=== PATIENT | female | born 1995 | race Caucasian/White ===

== ENCOUNTER 2017-07-16 08:00 | Inpatient (IN) | payer OTHER, SELFPAY ==
[2017-07-16 07:19] VITALS: BMI 52.8
[2017-07-16 07:59] LABS: ROM Internal Control Test YES-OK TO RESULT pt. (Internal QC)
[2017-07-16 08:01] LABS: ROM Patient Test POSITIVE (Negative)
[2017-07-16] MEDS: Oxytocin 30 units/NS 500 ml 30 UNITS/500 ML IV.SOLN IV (09:24)
[2017-07-16] MEDS: Lactated Ringers 1,000 ML 50 ML IV ×5 (09:24→21:57)
[2017-07-16 09:25] LABS: Hemoglobin 13.1 g/dl (12.0-15.0); Mean Corp Hgb Conc 33.6 g/gl (32-36); Mean Corpuscular Hgb 28.2 pg (27.0-32.0); Mean Corpuscular Volume 83.9 fL (81-99); Mean Platelet Vol. 12.3 fl (6.2-12.0); Platelet Count 232 K/mm3 (150-450); RBC Distribution Width CV 17.8 % (11.6-14.6); Red Blood Count 4.65 M/mm3 (4.2-5.4); White Blood Count 12.1 K/mm3 (4.4-11.0)
[2017-07-16 09:27] LABS: Scan Indicated on CBC? Y/N NO
--- NOTE | 2017-07-16 14:51 | PCM.PN.BLA ---
Progress Note LABOR PROGRESS NOTE Up at bedside standing and rocking with UCs. Has tried hands and knees, peanut ball, position changes AVSS Pitocin at 5 mIU/min (had been at 8 and dec d/t tachysystole) IFM: 120-s - 130 with avg variability Accels noted. intermittent variables, Occasional late, but category I tracing overall. UCs q 1 - 4+ mins with coupling, tripling and spacing dysfunctional appearing pattern. CX: deferred d/t SROM IUPC and scalp lead both placed at 2 cm No significant change from admission exam A/P; 36 6/7 wk EGA SROM. Clear. L ventricle with ventriculomegaly . NO OPERATIVE vaginal delivery recommended. Possible VSD IUGR. No significant progress noted. Continue pitocin and position changes. Watch progress, descent, tolerance of labor.
[2017-07-16] MEDS: Nalbuphine 10 MG/ML Ampul IV (15:39)
[2017-07-16] MEDS: Ondansetron 4 MG/2 ML Vial IV (16:49)
--- NOTE | 2017-07-16 17:11 | PCM.PN.OB ---
Subjective: Feeling contractions Objective: Afeb VSS. IUPC with adequate contractions. FHR tracing Cat 1. - Physical Exam General: Alert, Oriented x3, Cooperative, No apparent distress Lungs: Clear to auscultation, Normal air movement Cardiovascular: Regular rate, Regular Rhythm Abdomen: Gravid, Appropriate for Gestational Age Extremities: No edema Skin: No rashes Neurological: Neuro grossly intact Psych/Mental Status: Normal Affect Comment: ce 4 cm Weight: 289 lb 0.416 oz Body Mass Index (BMI) 52.8 Laboratory Tests Past 24 Hrs 07/16/17 07/16/17 07/16/17 07:40 09:10 09:10 WBC 12.1 H RBC 4.65 Hgb 13.1 Hct 39.0 MCV 83.9 MCH 28.2 MCHC 33.6 RDW 17.8 H RDW Differential 54.0 H Plt Count 232 MPV 12.3 H Vag Amniotic Fld Detect POSITIVE H Blood Type A POSITIVE Antibody Screen NEGATIVE Assessment/Plan Has progressed in labor. Continue pitocin. SROM now for 10 hours.
--- NOTE | 2017-07-17 02:23 | PCM.PN.OB ---
Subjective: Feels urge to push. Objective: Afeb VSS. FHR tracing overall Cat 1. - Physical Exam General: Alert, Oriented x3, Cooperative, No apparent distress Lungs: Clear to auscultation, Normal air movement Cardiovascular: Regular rate, Regular Rhythm Abdomen: Non Tender, Gravid, Appropriate for Gestational Age Extremities: No edema Skin: No rashes Comment: CE FD +2 station. Weight: 289 lb 0.416 oz Body Mass Index (BMI) 52.8 Intake and Output for Last 24 Hours 07/15/17 07/16/17 07/17/17 23:59 23:59 23:59 Intake Total 5250 / 5250 Output Total 750 / 750 Balance 4500 / 4500 Laboratory Tests Past 24 Hrs 07/16/17 07/16/17 07/16/17 07:40 09:10 09:10 WBC 12.1 H RBC 4.65 Hgb 13.1 Hct 39.0 MCV 83.9 MCH 28.2 MCHC 33.6 RDW 17.8 H RDW Differential 54.0 H Plt Count 232 MPV 12.3 H Vag Amniotic Fld Detect POSITIVE H Blood Type A POSITIVE Antibody Screen NEGATIVE Assessment/Plan Now in second stage of labor. Will start pushing efforts. Will avoid operative delivery due to suspected VSD.
--- NOTE | 2017-07-17 02:27 | PLAC_PTH ---
PATIENT: LUDA CRANDALL LOC: [facility] U#:[id number] AGE/SX: 21/F ROOM: WP002 RE07/16/[address]: Dr. Aristidse Elliott MD : 1995 BED: 1 DIS: 07/19/2017 SPEC #: [id number] RECD: 07/17/17 11:33 STATUS: MERY JORGE #: [id number] BRADEN: 07/17/17 02:[address]: Aristides Elliott DEPT: SURGICAL PATHOLOGY RECD BY: Reid Guzmán ENTERED: 07/17/17 11:33 SP TYPE: PLACENTA OTHR DR: No Primary Care Phys Tissues: Placenta, NOS Procedures: Surgery Specimen Level V HEADER OPERATION: Vaginal delivery PRE-OP DIAGNOSIS: SGA baby with suspected VSD TISSUE SUBMITTED: Placenta MICROSCOPIC DIAGNOSIS Zapata placenta (344 gm): Umbilical cord ? trivascular with acute funisitis. Placental membranes ? acute chorioamnionitis and acute deciduitis. Placental disc ? organizing intraparenchymal hemorrhage, Eduar-Rodney change, intravillous congestion and acute vasculitis of superficial placental vessels. AM:wolf 07/21/17 MICROSCOPIC DESCRIPTION Slides are reviewed. GROSS DESCRIPTION SPECIMEN: PLACENTA / CLINICAL INFORMATION: A. Weight: 1.884 kg B. Gestational Age: 37 weeks C. Sex: Male PLACENTAL WEIGHT (POST FIXATION): 344 gm PLACENTAL DIMENSIONS: 15 x 14 x 3 cm PLACENTAL SHAPE: Usual ovoid PLACENTAL WEIGHT FOR GESTATIONAL AGE: Within 10-99th percentile MEMBRANES - Present A. Insertion: Marginal B. Site of rupture from edge: 4.5 cm from edge of placental disc C. Color of membrane: Gilbert-vaz D. Abnormalities: None UMBILICAL CORD - Present A. Color: Gilbert-vaz B. Insertion: Eccentric C. Length: 49 cm D. Diameter: 1.2 cm E. Number of vessels: Three F. Abnormalities: None PLACENTAL DISC - Present A. Color of surface: Gilbert-vaz B. surface abnormalities: None C. Maternal cotyledons: Intact with minimal tears D. Attached retro placental clot: No clot E. Cut surface: Dark red and spongy F. Lesions: Section sections reveal a white-gilbert lesion measuring 1.5 x 0.8 cm G. Separate clot: Absent SECTIONS SUBMITTED: 1. Membrane roll and umbilical cord ( end notched) 2. Placental disc, and maternal surfaces, lesion 3. Placental disc, and maternal surfaces 4. Placental disc, and maternal surfaces AM:wolf 07/18/17 TC:2 CPT: 70069
[2017-07-17] MEDS: Oxytocin 30 units/NS 500 ml 30 UNITS/500 ML IV.SOLN 334 UNITS IV (02:44)
--- NOTE | 2017-07-17 03:09 | OP.PCM_ITS ---
Vaginal Delivery Maternal Presentation: Spontaneous Rupture of Membranes 36w6d with SROM. complicated by IUGR and suspected VSD with ventriculomegaly. Induction had been planned for 37 weeks. due to elevated dopplers and IUGR. Method of Induction: Pitocin Medical Reason for Induction: Compromise: list: - IUGR Amniotic Membrane Rupture Type: Spontaneous at home Rupture of Membrane time: 0600 Amniotic Fluid Description: Clear Final ESHA: 08/07/17 Final ESHA Source: [place] <20 weeks Gestational age: 37 Weeks and 0 Days Date of Procedure: 07/17/17 Pre-Operative Diagnosis: Labor Post-Operative Diagnosis: Same Surgery/ Procedure Performed: Spontaneous Vaginal Delivery Anesthesiologist: Hilton Parkinson Type of Anesthesia: Epidural Description of Procedure: Progressed to FD then pushed for less than 30 minutes to deliver a live male . There was a tight nuchal cord but was able to deliver without cutting cord. Cord was clamped and cut and baby taken to warmer for evaluation by nursing staff. Dr. Maldonado called shortly after delivery. The placenta was delivered spontaneously with a centrally located 3VC. The uterus contracted well after delivery. Inspection revealed an intact cervix and upper vagina. A very small first degree posterior vaginal first degree tear was re[paired with 2 -0 vicryl in a single figure of eight stitch. Presentation: Vertex Placental Delivery Description: Spontaneous Placenta Disposition: [facility] Percentage of Placenta Abruption: 0 Cord Vessel Description: 3 Vessels Nuchal Cord Compression: With compression Cord Entanglement: Around neck x 1, tight Drain: Bryan to straight drain Estimated Blood Loss: 300cc A gender: Male Episiotomy Description: None Laceration: Midline, 1st degree Medications given after delivery: IV Pitocin Complications: None
--- NOTE | 2017-07-17 03:13 | DCINST_ITS ---
Discharge Diet: No Restrictions Discharge Activity: Return to Normal Activity, May Drive, May Shower Return to work on:: 09/15/17 May shower in (days): 0 May resume sexual activity in: 4-6 weeks Call your doctor if your incision/area has: Sudden Increased Bleeding, Increased Pain/ Swelling, Foul Smelling Discharge Call your doctor if you observe: Fever of 101 or Higher, Inability to urinate, Inability to have a bowel movement, Using more than one pad per hour, Shortness of breath, Chest pain, Calf discomfort, Uncontrolled pain Cleanse incision/area with: Soap & Water Additional Instructions: If you experience any of the following, contact your healthcare provider. * Bleeding that soaks a pad every hour for 2 hours * Fever 100.4 or higher * Unrelieved incision or abdominal pain * Swelling, redness, discharge or bleeding from your incision or episiotomy site * Your incision begins to separate * Problems urinating (including inability to urinate or burning while urinating) . * Visual changes * Severe headache * Flu-like symptoms * Pain or redness in one of both of your breasts * Pain, warmth, tenderness or swelling in your legs, especially the calf area * Frequent nausea and vomiting * Symptoms of depression or anxiety If you experience any of the following, call 911 or go to the nearest Emergency Room. * Chest pain * Problems breathing * Seizure activity * Partial or complete paralysis of a body part, slurred speech, weakness or drooping of the face, or a sudden inability to walk or hold your balance Allergies/Adverse Reactions: Allergies No Known Allergies Allergy (Verified 08/09/15 09:37) Medications to take at Discharge Ferrous Sulfate 325 mg PO BIDCM 07/16/17 Levothyroxine [Synthroid] 88 mcg PO DAILY 07/16/17 Vits [Prenatabs FA ] 1 tablet PO DAILY 07/16/17 Ibuprofen [Motrin] 800 mg PO TID PRN PRN #30 tab 07/17/17 The following prescriptions were given: Ibuprofen [Motrin] 800 mg PO TID PRN PRN #30 tab PRN Reason: pain or cramping Orders to be completed after discharge: Electric breast pump Location: None Selected Please Follow Up With: Kenzie Edwards MD When: 6 weeks Primary Care Physician: Care Physician,No Primary [Primary Care Provider] - Proposed Discharge Date: 07/19/17
[2017-07-17] MEDS: Oxytocin 30 units/NS 500 ml 30 UNITS/500 ML IV.SOLN 167 UNITS IV (03:15)
[2017-07-17 03:26] LABS: Pathology Specimen OB SEE PATHOLOGY REPORT
[2017-07-17] MEDS: Ibuprofen 600 MG Tablet PO (03:58)
[2017-07-17] MEDS: Levothyroxine 88 MCG Tablet PO (05:05)
--- NOTE | 2017-07-17 07:53 | PCM.PN.OB ---
Subjective: Day of Delivery with epidural Doing well. reports easy delivery after longer labor. Epidural effective. Feet still a little tingly and working on moving in bed until full sensation returns. Breast feeding. Objective: Sitting up in bed. Baby at bedside in crib - Physical Exam General: Alert, Oriented x3, Cooperative, No apparent distress HEENT: Atraumatic Neck: Supple Abdomen: Soft - Fundus firm NT inferior to umbilicus. Extremities: No clubbing Neurological: Cranial nerves II-XII grossly intact Psych/Mental Status: Normal Affect Weight: 131.1 kg Body Mass Index (BMI) 52.8 Intake and Output for Last 24 Hours 07/15/17 07/16/17 07/17/17 23:59 23:59 23:59 Intake Total 5250 / 5250 1250 / 1250 Output Total 750 / 750 700 / 700 Balance 4500 / 4500 550 / 550 Laboratory Tests Past 24 Hrs 07/16/17 07/16/17 07/16/17 07:40 09:10 09:10 WBC 12.1 H RBC 4.65 Hgb 13.1 Hct 39.0 MCV 83.9 MCH 28.2 MCHC 33.6 RDW 17.8 H RDW Differential 54.0 H Plt Count 232 MPV 12.3 H Vag Amniotic Fld Detect POSITIVE H Blood Type A POSITIVE Antibody Screen NEGATIVE Assessment/Plan PPD 0 Day of delivery. 36 6/7 wk for SROM Baby with L ventriculmegaly, possible on MFM sono. IUGR 4# 8 oz Continue care.
--- NOTE | 2017-07-17 07:57 | PN.OBGYN_ITS ---
Subjective: Day of Delivery with epidural Doing well. reports easy delivery after longer labor. Epidural effective. Feet still a little tingly and working on moving in bed until full sensation returns. Breast feeding. Objective: Sitting up in bed. Baby at bedside in crib - Physical Exam General: Alert, Oriented x3, Cooperative, No apparent distress HEENT: Atraumatic Neck: Supple Abdomen: Soft - Fundus firm NT inferior to umbilicus. Extremities: No clubbing Neurological: Cranial nerves II-XII grossly intact Psych/Mental Status: Normal Affect Weight: 131.1 kg Body Mass Index (BMI) 52.8 Intake and Output for Last 24 Hours 07/15/17 07/16/17 07/17/17 23:59 23:59 23:59 Intake Total 5250 / 5250 1250 / 1250 Output Total 750 / 750 700 / 700 Balance 4500 / 4500 550 / 550 Laboratory Tests Past 24 Hrs 07/16/17 07/16/17 07/16/17 07:40 09:10 09:10 WBC 12.1 H RBC 4.65 Hgb 13.1 Hct 39.0 MCV 83.9 MCH 28.2 MCHC 33.6 RDW 17.8 H RDW Differential 54.0 H Plt Count 232 MPV 12.3 H Vag Amniotic Fld Detect POSITIVE H Blood Type A POSITIVE Antibody Screen NEGATIVE Assessment/Plan PPD 0 Day of delivery. 36 6/7 wk for SROM Baby with L ventriculmegaly , possible on MFM sono. IUGR 4# 8 oz Continue care.
[2017-07-17 08:33] VITALS: BP 149/63; PULSE 70; RESP 16; TEMP 36.9; O2SAT 95
[2017-07-17] MEDS: Ferrous Sulfate 325 MG Tablet PO ×2 (10:04→18:15)
[2017-07-17 13:13] VITALS: BP 136/77; PULSE 88; RESP 16; TEMP 36.6; O2SAT 96
--- NOTE | 2017-07-17 15:32 | NURSING ---
Unable to catch urine for measurement
--- NOTE | 2017-07-17 15:38 | NURSING ---
vitals and assessment reviewed from student Nurse and i agree with ther findings after seeing and assessing the patient myself
[2017-07-17 16:11] VITALS: BP 154/85; PULSE 92; RESP 18; TEMP 37; O2SAT 96
[2017-07-17] MEDS: Prenatal Vits Tablet 1 TABLET PO (16:43)
[2017-07-17 21:15] VITALS: BP 135/70; PULSE 90; RESP 18; TEMP 36.1
[2017-07-18 02:55] VITALS: BP 151/84; PULSE 80; RESP 18; TEMP 36.8
[2017-07-18] MEDS: Levothyroxine 88 MCG Tablet PO (06:13)
[2017-07-18 08:25] LABS: Hematocrit 34.4 % (37-47); Hemoglobin 11.3 g/dl (12.0-15.0); Mean Corp Hgb Conc 32.8 g/gl (32-36); Mean Corpuscular Hgb 27.9 pg (27.0-32.0); Mean Corpuscular Volume 84.9 fL (81-99); Mean Platelet Vol. 11.3 fl (6.2-12.0); Platelet Count 131 K/mm3 (150-450); RBC Distribution Width CV 18.2 % (11.6-14.6); RBC Distribution Width SD 56.9 fl (35.1-43.9); Red Blood Count 4.05 M/mm3 (4.2-5.4)
[2017-07-18 08:26] LABS: Scan Indicated on CBC? Y/N NO
[2017-07-18 09:00] VITALS: BP 126/69; PULSE 80; RESP 18; TEMP 37.3
--- NOTE | 2017-07-18 10:13 | PCM.PN.OB ---
Subjective: Patient without complaints. Breast feeding going well. - Physical Exam Vital Signs AF, VSS Temp Pulse Resp BP Pulse Ox 98.3 F 80 18 151/84 H 96 07/18/17 02:55 07/18/17 02:55 07/18/17 02:55 07/18/17 02:55 07/17/17 16:11 Oxygen Delivery Method Room Air Weight: 289 lb 0.416 oz Body Mass Index (BMI) 52.8 Intake and Output for Last 24 Hours 07/16/17 07/17/17 07/18/17 23:59 23:59 23:59 Intake Total 5250 / 5250 1250 / 1250 Output Total 750 / 750 1600 / 1600 Balance 4500 / 4500 -350 / -350 Laboratory Tests Past 24 Hrs 07/18/17 08:05 WBC 16.0 H RBC 4.05 L Hgb 11.3 L Hct 34.4 L MCV 84.9 MCH 27.9 MCHC 32.8 RDW 18.2 H RDW Differential 56.9 H Plt Count 131 L MPV 11.3 Assessment/Plan Doing well. Continuing present care.
[2017-07-18] MEDS: Prenatal Vits Tablet 1 TABLET PO (13:08)
[2017-07-18] MEDS: Ferrous Sulfate 325 MG Tablet PO ×2 (13:08→17:50)
[2017-07-18 14:00] VITALS: BP 146/85; PULSE 72; RESP 18; TEMP 37.2
[2017-07-18 20:20] VITALS: BP 153/85; PULSE 80; RESP 18; TEMP 37.1
[2017-07-19 00:25] VITALS: BP 143/77
[2017-07-19 01:55] VITALS: BP 135/66; PULSE 85; RESP 18; TEMP 36.8
[2017-07-19] MEDS: Levothyroxine 88 MCG Tablet PO (06:31)
[2017-07-19 10:00] VITALS: BP 138/78; PULSE 77; RESP 18; TEMP 36.8; O2SAT 99
[2017-07-19] MEDS: Ferrous Sulfate 325 MG Tablet PO ×2 (10:14→17:37)
[2017-07-19] MEDS: Prenatal Vits Tablet 1 TABLET PO (10:14)
--- NOTE | 2017-07-19 12:17 | PCM.PN.OB ---
Subjective: Patient without complaints. Breast-feeding going well. Ready to go home. - Physical Exam Vital Signs AF, VSS Temp Pulse Resp BP Pulse Ox 98.2 F 77 18 138/78 H 99 07/19/17 10:00 07/19/17 10:00 07/19/17 10:00 07/19/17 10:00 07/19/17 10:00 Oxygen Delivery Method Room Air Weight: 289 lb 0.416 oz Body Mass Index (BMI) 52.8 Intake and Output for Last 24 Hours 07/17/17 07/18/17 07/19/17 23:59 23:59 23:59 Intake Total 1250 / 1250 Output Total 1600 / 1600 Balance -350 / -350 Assessment/Plan Doing well. Released to home with routine instructions.
--- NOTE | 2017-07-19 12:20 | PCM.DC.BLA ---
Discharge Summary Date of Admission: 07/16/17 Date of Discharge: 07/19/17 Summary: Admission diagnosis: Intrauterine , ventriculomegaly Discharge diagnosis: Intrauterine , ventriculomegaly Procedure: Tenuous vaginal delivery HPI: Uneventful care except as noted above PE: Unremarkable. Hospital Course: The patient is a 21 year old who presented to [facility] at 36+ week weeks gestation with PPROM. She subsequently had a tennis vaginal delivery. the patient did well and it was felt that she was ready for discharge on day #2. Homegoing Instruction: She was instructed not to drive for several days and to call the office for an appointment in 6 weeks. Discharge Medications: She was instructed to continue vitamins and iron.
[2017-07-19 14:15] VITALS: BP 147/99; PULSE 86; RESP 18; TEMP 37
== END 2017-07-19 19:00 | disposition home or self-care (01) | DRG 775 ==
LOC: WPOUT 08:04
PROVIDERS: Obstetrics & Gynecology; Admitting Provider Obstetrics & Gynecology; Visit Provider Obstetrics & Gynecology
DX: O36.5930 Maternal care for other known or suspected poor fetal growth, third trimester, not applicable or unspecified (principal); E03.9 Hypothyroidism, unspecified; Z3A.37 37 weeks gestation of pregnancy; O69.1XX0 Labor and delivery complicated by cord around neck, with compression, not applicable or unspecified; Z37.0 Single live birth; O70.0 First degree perineal laceration during delivery; O99.284 Endocrine, nutritional and metabolic diseases complicating childbirth
CPT/HCPCS: 36415; 59025; 59050; 84112; 85027; 86850; 86900; 88307; 99218; J7120; G0378; J2405

== ENCOUNTER 2017-07-23 12:55 | Outpatient (CLI) | payer OTHER, SELFPAY ==
--- NOTE | 2017-07-23 14:20 | NURSING ---
Mother's breasts soft but filling , baby assertive suck with nipple shield for longer period than when just on breast and occasional swallow heard but not constant.
--- NOTE | 2017-07-23 14:23 | NURSING ---
Did not get milk transfer at this feeding
== END 2017-07-23 14:00 | disposition home or self-care (01) ==
LOC: WPOUT 12:57 → WP 12:58
PROVIDERS: Visit Provider Pediatrics
DX: R63.3 Feeding difficulties (principal)
CPT/HCPCS: 96152

== ENCOUNTER → 2018-09-16 13:33 | Outpatient (CLI) | payer OTHER, SELFPAY ==
[2018-09-21 10:12] LABS: HPV Reflexed? NOT INDICATED
== END ==
PROVIDERS: Visit Provider Obstetrics & Gynecology
DX: Z12.4 Encounter for screening for malignant neoplasm of cervix (principal)
CPT/HCPCS: 88175; G0145

== ENCOUNTER 2021-06-12 17:46 | Outpatient (CLI) | payer OTHER, SELFPAY ==
[2021-06-12] VITALS (9 sets, daily range): BP systolic 131–164; BP diastolic 60–85; PULSE 78–108; O2SAT 96; BMI 48.0
--- NOTE | 2021-06-12 18:19 | OB.TRI.NOTE ---
HPI - General HPI Narrative LUDA CRANDALL, is a 25 F who presents with elevated BP at home. Maternal Data Information Final ESHA: 09/18/21 [facility] Medical History (Updated 06/12/21 @ 18:[address] Palmer Byrd MD) Elevated blood pressure affecting in third trimester, antepartum Home Medications Prenatabs FA 1 tab PO DAILY 07/16/17 [History Last Taken 06/11/21 21:00] levothyroxine 137 mcg PO DAILY 07/16/17 [History Last Taken 06/12/21 06:00] aspirin 162 mg PO DAILY 06/12/21 [History Last Taken 06/11/21 21:00] bupropion HCl 150 mg PO DAILY 06/12/21 [History Last Taken 06/11/21 21:00] sertraline [Zoloft] 100 mg PO DAILY 06/12/21 [History Last Taken 06/11/21 21:00] Allergy/AdvReac Type Severity Reaction Status Date / Time No Known Allergies Allergy Verified 06/12/21 17:55 Social History Smoking Status: Never smoker History Elective abortions Hx Para 0 Spontaneous abortions Hx # Term Pregnancies Ectopic pregnancies Hx # Pregnancies Multiple births # of living children NST FHR Rate Baby A Baseline: 135 Variability:: Moderate Accelerations:: 15 x 15 Decelerations:: None NST Reactive:: Yes Uterine Activity:: quiet Assessment & Plan (1) Elevated blood pressure affecting in third trimester, antepartum: COMMENT: 26 weeks PLAN: Reactive NST PreE labs ordered BP monitoring
[2021-06-12 19:24] LABS: Protein, Urine (Random) 16.2 mg/dL (<11.9); Protein:Creat Ratio 116 mg/g CRE (0-200)
[2021-06-12 20:23] LABS: Hematocrit 33.3 % (37-47); Hemoglobin 10.9 g/dL (12.0-15.0); Mean Corp Hgb Conc 32.7 g/dL (32-36); Mean Corpuscular Hgb 28.5 pg (27.0-32.0); Mean Corpuscular Volume 86.9 fL (81-99); Mean Platelet Vol. 11.6 fl (6.2-12.0); Platelet Count 296 K/mm3 (150-450); RBC Distribution Width SD 40.9 fl (35.1-43.9); Red Blood Count 3.83 M/mm3 (4.2-5.4); White Blood Count 18.6 K/mm3 (4.4-11.0)
[2021-06-12 20:54] LABS: AST(SGOT) 19 U/L (15-37); Alanine Aminotransfer ALT/SGPT 26 U/L (13-56); Creatinine, Serum 0.46 mg/dL (0.55-1.02); EST Glomerular Filtration Rate 175 mL/min (>60); Est Glom Filt Rate - Afr Amer 212 mL/min (>60); Uric Acid 3.8 mg/dL (2.6-6.0)
== END 2021-06-12 23:59 | disposition home or self-care (01) ==
LOC: WPOUT 17:47 → WP 17:48
PROVIDERS: Visit Provider Obstetrics & Gynecology
DX: O26.892 Other specified pregnancy related conditions, second trimester (principal); R03.0 Elevated blood-pressure reading, without diagnosis of hypertension; Z3A.26 26 weeks gestation of pregnancy; Z79.82 Long term (current) use of aspirin
CPT/HCPCS: 36415; 59025; 59050; 82565; 82570; 84156; 84450; 84460; 84550; 85027; 99218; G0378

== ENCOUNTER 2021-07-02 17:10 | Outpatient (CLI) | payer OTHER, SELFPAY ==
[2021-07-02 17:22] VITALS: TEMP 36.4; O2SAT 98
[2021-07-02 17:23] VITALS: BP 129/83; PULSE 125; O2SAT 98
[2021-07-02 19:21] VITALS: PULSE 80; O2SAT 99
[2021-07-02 19:23] VITALS: BP 121/73; PULSE 87; TEMP 36.3
[2021-07-02 19:25] VITALS: BMI 48.3
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
== END 2021-07-02 23:59 | disposition home or self-care (01) ==
LOC: WPOUT 17:12 → WP 17:13
PROVIDERS: Referring Provider Advanced Practice Midwife; Visit Provider Advanced Practice Midwife
DX: Z04.1 Encounter for examination and observation following transport accident (principal)
CPT/HCPCS: 59025; 59050; 99218; G0378

== ENCOUNTER 2021-09-04 07:05 | Inpatient (IN) | payer OTHER, SELFPAY ==
[2021-09-04] VITALS (91 sets, daily range): BP systolic 105–167; BP diastolic 53–95; PULSE 41–123; TEMP 36.4–37.4; O2SAT 87–100; BMI 50.6
[2021-09-04] MEDS: Lactated Ringers 1,000 ML 50 ML IV (08:26)
[2021-09-04] MEDS: Oxytocin 30 units/NS 500 ml 30 UNITS/500 ML IV.SOLN IV (08:26)
[2021-09-04 08:51] LABS: Absolute Lymphocyte Count 2.08 X10^3/uL (0.83-4.51); Absolute Neutrophil Count 11.7 X10^3/uL (2.0-7.7); Basophil# 0.06 X10^3/uL; Basophil% 0.4 % (0-1); Eosinophil# 0.74 X10^3/uL; Eosinophils% 4.8 % (0-5); Hematocrit 28.5 % (37-47); Hemoglobin 8.8 g/dL (12.0-15.0); Lymphocyte # 2.08 X10^3/ul (0.83-4.51); Lymphocyte % 13.5 % (19-41); Mean Corp Hgb Conc 30.9 g/dL (32-36); Mean Corpuscular Hgb 23.5 pg (27.0-32.0); Mean Platelet Vol. 11.4 fl (6.2-12.0); Monocyte# 0.81 X10^3/uL; Monocyte% 5.2 % (0-10); NRBC Flagged by Analyzer 0 % (0-5); Neutrophil # 11.66 X10^3/uL (2.7-7.7); Neutrophil % 75.5 % (47-70); Platelet Count 289 K/mm3 (150-450); RBC Distribution Width CV 14.9 % (11.6-14.6); RBC Distribution Width SD 41.1 fl (35.1-43.9); Red Blood Count 3.75 M/mm3 (4.2-5.4); White Blood Count 15.5 K/mm3 (4.4-11.0)
[2021-09-04 10:48] LABS: ALB/GLOB Ratio 0.6 RATIO (0.9-2.4); AST(SGOT) 22 U/L (15-37); Alanine Aminotransfer ALT/SGPT 15 U/L (13-56); Albumin, Serum 2.4 g/dL (3.2-5.0); Alkaline Phosphatase 159 U/L (45-117); Anion Gap 6 (5-15); BUN 8 mg/dL (7-18); BUN/Creat Ratio 15.3 RATIO (10-20); Chloride 110 mmol/L (98-107); Creatinine, Serum 0.52 mg/dL (0.55-1.02); EST Glomerular Filtration Rate 151 mL/min (>60); Est Glom Filt Rate - Afr Amer 183 mL/min (>60); Estimated Creatinine Clearance 136.81 ml/min; Globulin 4.3 g/dL (2.2-4.2); Glucose 96 mg/dL (74-106); Protein, Total 6.7 g/dL (6.4-8.2); Sodium Level 137 mmol/L (136-145)
[2021-09-04] MEDS: fentaNYL 100 MCG/2 ML Ampul IV (16:27)
[2021-09-04] MEDS: Lactated Ringers 500 ML 999 ML IV (17:34)
[2021-09-04] MEDS: fentaNYL-bupivacaine (epidural) 100 ML BAG EPIDURAL (18:26)
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
[2021-09-04] MEDS: Lactated Ringers 1,000 ML 200 ML IV (21:00)
--- NOTE | 2021-09-04 21:30 | PCM.HP.OB ---
HPI - General General Date of Admission: 09/04/21 HPI Narrative LUDA CRANDALL, is a 26 F who presents for induction. Maternal Data Information Final ESHA: 09/18/21 Gestational age: 38 weeks [facility] Medical History (Updated 09/04/21 @ 21:[address] Palmer Byrd MD) Cholestasis during Depression Elevated blood pressure affecting in third trimester, antepartum Hypothyroid Obesity Home Medications Prenatabs FA 1 tab PO DAILY 07/16/17 [History Last Taken 09/03/21 21:00] levothyroxine 137 mcg PO DAILY 07/16/17 [History Last Taken 09/04/21 05:00] aspirin 162 mg PO DAILY 06/12/21 [History Last Taken 09/03/21 21:00] bupropion HCl 150 mg PO DAILY 06/12/21 [History Last Taken 09/03/21 21:00] sertraline [Zoloft] 100 mg PO DAILY 06/12/21 [History Last Taken 09/03/21 21:00] ursodiol 300 mg PO TID 09/04/21 [History Last Taken 09/03/21 21:00] Allergy/AdvReac Type Severity Reaction Status Date / Time No Known Allergies Allergy Verified 09/04/21 07:43 Surgical History (Updated 09/04/21 @ 21:[address] Palmer Byrd MD) History of appendectomy Hx of cholecystectomy Social History Smoking Status: Never smoker History Elective abortions Hx Para 1 Spontaneous abortions Hx # Term Pregnancies Ectopic pregnancies Hx # Pregnancies Multiple births # of living children Vital Signs Vital Signs Vital Signs: 09/04/21 07:28 09/04/21 07:29 09/04/21 07:30 Temperature 98.4 F Temperature Source Pulse Rate 123 H 122 H Blood Pressure 132/86 H BP Systolic 132 BP Diastolic 86 Pulse Ox 97 09/04/21 08:25 09/04/21 09:51 09/04/21 10:29 Temperature 98.2 F 99.1 F Temperature Source Pulse Rate 92 86 89 Blood Pressure 143/84 H 139/73 H 154/88 H BP Systolic 143 139 154 BP Diastolic 84 73 88 Pulse Ox 09/04/21 11:40 09/04/21 12:14 09/04/21 13:04 Temperature 99.3 F H 99.1 F 97.9 F Temperature Source Pulse Rate 96 90 41 L Blood Pressure 133/84 H 148/95 H 137/94 H BP Systolic 133 148 137 BP Diastolic 84 95 94 Pulse Ox 09/04/21 14:06 09/04/21 14:09 09/04/21 15:07 Temperature 98.8 F 98.2 F Temperature Source Pulse Rate Blood Pressure 134/94 H BP Systolic 134 BP Diastolic 94 Pulse Ox 09/04/21 15:10 09/04/21 16:08 09/04/21 16:09 Temperature 98.7 F 98.8 F Temperature Source Temporal Pulse Rate 93 Blood Pressure 144/73 H BP Systolic 144 BP Diastolic 73 Pulse Ox 09/04/21 16:11 09/04/21 17:05 09/04/21 17:07 Temperature 98.2 F Temperature Source Pulse Rate 77 77 Blood Pressure 128/74 H 134/66 H BP Systolic 128 134 BP Diastolic 74 66 Pulse Ox 09/04/21 18:00 09/04/21 18:05 09/04/21 18:06 Temperature Temperature Source Pulse Rate 97 98 88 Blood Pressure 167/86 H 143/72 H BP Systolic 167 143 BP Diastolic 86 72 Pulse Ox 100 100 09/04/21 18:10 09/04/21 18:12 09/04/21 18:15 Temperature Temperature Source Pulse Rate 102 H 86 Blood Pressure 133/71 H BP Systolic 133 BP Diastolic 71 Pulse Ox 98 99 09/04/21 18:16 09/04/21 18:20 09/04/21 18:21 Temperature Temperature Source Pulse Rate 112 H 90 93 Blood Pressure 137/75 H 156/74 H BP Systolic 137 156 BP Diastolic 75 74 Pulse Ox 100 09/04/21 18:25 09/04/21 18:26 09/04/21 18:30 Temperature Temperature Source Pulse Rate 114 H 101 H Blood Pressure 118/57 L 119/57 L BP Systolic 118 119 BP Diastolic 57 57 Pulse Ox 100 100 09/04/21 18:35 09/04/21 18:40 09/04/21 18:45 Temperature 98.6 F Temperature Source Pulse Rate 105 H 114 H Blood Pressure 114/56 L 116/55 L BP Systolic 114 116 BP Diastolic 56 55 Pulse Ox 100 97 100 09/04/21 18:46 09/04/21 18:50 09/04/21 18:51 Temperature Temperature Source Pulse Rate 100 90 90 Blood Pressure 145/67 H 131/64 H BP Systolic 145 131 BP Diastolic 67 64 Pulse Ox 99 09/04/21 18:55 09/04/21 18:56 09/04/21 19:00 Temperature Temperature Source Pulse Rate 96 97 Blood Pressure 137/60 H BP Systolic 137 BP Diastolic 60 Pulse Ox 100 100 09/04/21 19:01 09/04/21 19:05 09/04/21 19:07 Temperature Temperature Source Pulse Rate 93 94 96 Blood Pressure 132/63 H 135/78 H BP Systolic 132 135 BP Diastolic 63 78 Pulse Ox 100 09/04/21 19:10 09/04/21 19:15 09/04/21 19:20 Temperature 97.5 F L Temperature Source Pulse Rate 101 H 101 H 115 H Blood Pressure BP Systolic BP Diastolic Pulse Ox 99 99 99 09/04/21 19:25 09/04/21 19:29 09/04/21 19:30 Temperature Temperature Source Pulse Rate 101 H 104 H 97 Blood Pressure BP Systolic BP Diastolic Pulse Ox 100 92 100 09/04/21 19:35 09/04/21 19:40 09/04/21 19:42 Temperature Temperature Source Pulse Rate 92 95 100 Blood Pressure 142/53 H BP Systolic 142 BP Diastolic 53 Pulse Ox 100 100 09/04/21 19:45 09/04/21 19:50 09/04/21 19:55 Temperature Temperature Source Pulse Rate 108 H 111 H 97 Blood Pressure BP Systolic BP Diastolic Pulse Ox 100 100 100 09/04/21 20:00 09/04/21 20:05 09/04/21 20:10 Temperature Temperature Source Pulse Rate 93 105 H 101 H Blood Pressure BP Systolic BP Diastolic Pulse Ox 100 95 100 09/04/21 20:15 09/04/21 20:20 09/04/21 20:26 Temperature Temperature Source Pulse Rate 111 H 109 H 110 H Blood Pressure BP Systolic BP Diastolic Pulse Ox 100 100 90 09/04/21 20:33 09/04/21 20:37 Temperature 98.8 F Temperature Source Pulse Rate 96 Blood Pressure 125/65 H BP Systolic 125 BP Diastolic 65 Pulse Ox Weight Weight: 286 lb 2.56 oz Body Mass Index (BMI) 50.6 Physical Exam Const alert, oriented x3 and no apparent distress Chest inspection of chest normal Resp normal respiratory effort GI soft to palpation, non-tender and non-distended Inspection: gravid external exam normal Narrative: cvx - 3/60/-3, AROM clear fluid Labs Labs Labs: Blood Type A POSITIVE Antibody Screen NEGATIVE Hct 28.5 % (37-47) L Hgb 8.8 g/dL (12.0-15.0) L Rubella IgG Antibody 200.0 IU/mL Hep Bs Antigen Negative (Negative) Glucose 1 Hr 50 gm 90 mg/dL (70-140) Group B Strep DNA Negative (Negative) Rhogam given: No See [facility] H&P Assessment & Plan (1) Cholestasis during : QUALIFIERS: Trimester: third trimester Qualified Code(s): O26.613 - Liver and biliary tract disorders in , third trimester; K83.1 - Obstruction of bile duct COMMENT: @ 38 weeks PLAN: Admit to L&D Induction for cholestasis - on pitocin & s/p AROM Pain - epidural as desired EFW - less than 4500g, patient with adequate pelvis GBS negative Routine care
--- NOTE | 2021-09-04 21:37 | EX.PCM.OBRPT ---
Maternal Data Information Final ESHA: 09/18/21 Gestational age: 38 weeks Vaginal Delivery Maternal Presentation Maternal Presentation: Medically Indicated Induction Type of Induction: Pitocin and Amniotomy Medical Reason for Induction: Maternal Medical Condition: list: (Cholestasis of ) Operative Information Date of Procedure: 09/04/21 Pre-Operative Diagnosis: Cholestasis of Post-Operative Diagnosis: Same Surgery / Procedure Performed: Spontaneous Vaginal Delivery Type of Anesthesia: Epidural Findings Description of Procedure: Patient prepped & draped when C/C/+2. She pushed well to deliver the head. head gently guided to allow delivery of anterior and posterior shoulders. No excess traction placed on head. Body delivered through loose nuchal cord. 3VC clamped & cut in delayed fashion. Placenta delivered with gentle traction and good uterine tone obtained. Presentation: CL[place]ENCE Amniotic Membrane Rupture Type: Artificial Amniotic Fluid Description: Clear Placental Delivery Description: Expressed Placenta Disposition: [facility] Specimen(s) Removed: Placenta Cord Vessel Description: 3 Vessels Cord Entanglement: Around neck x 1, loose Nuchal Cord Compression: Without compression Infant A Gender: Female ([place]) (1 minute): 8 (5 minute): 9 Delayed Cord Clamping: Yes Post Vaginal Delivery Medications Given After Delivery: IV Pitocin and - (Rectal cytotec) Episiotomy Description: None Laceration: None Complication Complications: None
[2021-09-04] MEDS: Oxytocin 30 units/NS 500 ml 30 UNITS/500 ML IV.SOLN 334 UNITS IV (22:10)
[2021-09-04] MEDS: miSOPROStol 200 MCG Tablet 1000 MCG RC (22:18)
[2021-09-04] MEDS: 0.9% Saline Lock 10 ML Syringe IV (22:33)
[2021-09-05] VITALS (9 sets, daily range): BP systolic 113–130; BP diastolic 46–81; PULSE 76–112; RESP 15–18; TEMP 35.7–37.6; O2SAT 97–99
[2021-09-05] MEDS: Levothyroxine 137 MCG Tablet PO (06:26)
[2021-09-05 06:39] LABS: Absolute Lymphocyte Count 2.26 X10^3/uL (0.83-4.51); Absolute Neutrophil Count 20.2 X10^3/uL (2.0-7.7); Basophil# 0.05 X10^3/uL; Basophil% 0.2 % (0-1); Eosinophils% 0.4 % (0-5); Hematocrit 27.2 % (37-47); Hemoglobin 8.6 g/dL (12.0-15.0); Lymphocyte # 2.26 X10^3/ul (0.83-4.51); Lymphocyte % 9.3 % (19-41); Mean Corp Hgb Conc 31.6 g/dL (32-36); Mean Corpuscular Hgb 24.2 pg (27.0-32.0); Mean Corpuscular Volume 76.6 fL (81-99); Mean Platelet Vol. 10.7 fl (6.2-12.0); Monocyte# 1.54 X10^3/uL; Monocyte% 6.3 % (0-10); NRBC Flagged by Analyzer 0 % (0-5); Neutrophil # 20.16 X10^3/uL (2.7-7.7); Neutrophil % 83.1 % (47-70); POSITIVE DIFFERENTIAL YES; Platelet Count 313 K/mm3 (150-450); RBC Distribution Width CV 14.7 % (11.6-14.6); Red Blood Count 3.55 M/mm3 (4.2-5.4); White Blood Count 24.3 K/mm3 (4.4-11.0)
[2021-09-05 06:41] LABS: Differential Indicated SCAN CRITERIA MET
[2021-09-05 07:07] LABS: Anisocytosis 2+; Differential Comment SCANNED; Hypochromasia 1+; Microcytosis 2+
--- NOTE | 2021-09-05 08:06 | PN.OBGYN_ITS ---
Subjective Subjective Is doing well this morning. She is resting. Denies any complaints or pain. Lochia normal. Objective Data Objective Data Vital Signs: Vital Signs Temp Pulse Resp BP Pulse Ox 97 F L 100 16 130/81 H 99 09/05/21 04:50 09/05/21 04:50 09/05/21 04:50 09/05/21 04:50 09/05/21 00:08 Oxygen Delivery Method Room Air Weight: 286 lb 2.56 oz Body Mass Index (BMI) 50.6 Intake & Output: Intake and Output for Last 24 Hours 09/03/21 09/04/21 09/05/21 23:59 23:59 23:59 Intake Total 2393.80 / 2393.80 333 / 333 Output Total 400 / 400 600 / 600 Balance / -267 / -267 Lab / Micro Data Result Diagrams: 09/05/21 06:30 09/04/21 08:37 Labs: Laboratory Results - last 24 hr 09/04/21 08:37: WBC 15.5 H, RBC 3.75 L, Hgb 8.8 L, Hct 28.5 L, MCV 76.0 L, MCH 23.5 L, MCHC 30.9 L, RDW Std Deviation 41.1, RDW Coeff of Debra 14.9 H, Plt Count 289, MPV 11.4, Immature Gran % (Auto) 0.600, Neut % (Auto) 75.5 H, Lymph % (Auto) 13.5 L, [place] % (Auto) 5.2, Eos % (Auto) 4.8, Baso % (Auto) 0.4, Absolute Neuts (auto) 11.7 H, Absolute Lymphs (auto) 2.08, Nucleated RBC % 0 09/04/21 08:37: Blood Type A POSITIVE, Antibody Screen NEGATIVE 09/04/21 08:37: Sodium 137, Potassium 4.0, Chloride 110 H, Carbon Dioxide 21.0, Anion Gap 6, BUN 8, Creatinine 0.52 L, Estim Creat Clear Calc 136.81, Est GFR (M DRD) Af Amer 183, Est GFR (MDRD) Non-Af 151, BUN/Creatinine Ratio 15.3, Glucose 96, Calcium 9.0, Total Bilirubin 0.30, AST 22, ALT 15, Alkaline Phosphatase 159 H, Total Protein 6.7, Albumin 2.4 L, Globulin 4.3 H, Albumin/Globulin Ratio 0.6 L 09/05/21 06:30: WBC 24.3 H, RBC 3.55 L, Hgb 8.6 L, Hct 27.2 L, MCV 76.6 L, MCH 24.2 L, MCHC 31.6 L, RDW Std Deviation 41.0, RDW Coeff of Debra 14.7 H, Plt Count 313, MPV 10.7, Immature Gran % (Auto) 0.700, Neut % (Auto) 83.1 H, Lymph % (Auto) 9.3 L, [place] % (Auto) 6.3, Eos % (Auto) 0.4, Baso % (Auto) 0.2, Absolute Neuts (auto) 20.2 H, Absolute Lymphs (auto) 2.26, Nucleated RBC % 0, Differen tial Comment SCANNED, Diff Path Review May foll, Hypochromasia 1+, Anisocytosis 2+, Microcytosis 2+ Micro: Microbiology 09/04/21 08:00 Nasal Secretion SARS-CoV-2 Antigen (Rapid) - Final Physical Exam Const no apparent distress General Appearance: comfortable Assessment & Plan (1) Status post vaginal delivery: PLAN: PPD#1 and doing well Hgb 8.6 no symptoms of anemia - will need iron supplementation at home Routine care and anticipate discharge tomorrow
[2021-09-05] MEDS: Sertraline 100 MG Tablet PO (08:55)
[2021-09-05] MEDS: 0.9% Saline Lock 10 ML Syringe IV ×2 (08:55→22:35)
[2021-09-05] MEDS: buPROPion (XL) 150 MG TABLET.XL PO (08:58)
[2021-09-05] MEDS: Prenatal Vits Tablet 1 TABLET PO (08:59)
[2021-09-05 12:56] LABS: Pathologist Review Reviewed
--- NOTE | 2021-09-05 19:19 | CASEMGMT ---
Social Work Assessment Labor and Delivery Unit Date of Referral: 09/04/2021 Time of Referral: 23:00 Referred By: Dr. Carson Chakraborty Date of Intervention: 09/05/2021 Time of Intervention: 19:19 Reason for Referral: Mother of baby (MOB) with history of Depression and Anxiety. History obtained from: MOB, Father of baby (FOB), Chart, and nursing staff. Household composition: MOB, FOB (Orion Troy), Chacorta Pedersen (4 years old, : 07/17/2017) and now this infant, Brandie Troy. Patient's parent/guardian status: MOB and FOB have been together for 7 years and have been since December 2020. This is second infant for MOB and FOB together. was planned and accepted. Medical History: MOB with history prior to delivery of this infant. MOB induced at 38 weeks due to cholestasis. Infant born on 09/04/2020 with apgars of 8 and 9 at 1min and 5min. Infant weight was 3110g. to follow with Dr. Allen in the community. MOB plans to breastfeed and reports that breast feeding is going well. Educational Status: MOB denies issues with comprehension or understanding. Financial Status: MOB denies financial concerns. MOB works for [employer] and will be off work until the fall. Supplies: MOB reports to have needed supplies including a car seat and crib. Childcare/Caregiver(s): MOB plans to be primary caregiver for infant until returning to work. Family is currently watching [place] and plan to assist with care of infant as needed. Transportation: MOB denies concerns with transportation. Programs/Agencies Involved: MOB denies any active community programs. Children Services/Legal Issues: MOB denies. Mental Health History: MOB reports history of Anxiety and Depression and to currently be taking Zoloft to manage mental health. MOB reports that Zoloft is helpful and ?works for me.? This oncology social worker able to facilitate conversation with MOB about depression and anxiety. MOB denies suicidal thoughts or history of. MOB reports to feel comfortable reaching out to medica professionals and family if MOB starts to have signs/symptoms of depression. Substance Use History: Denies. PHQ9: Did not trigger. Family/Social Stressors: MOB denies stressors Support Systems: MOB reports to have support from FOB and family. Depression and Anxiety/Shaken Baby/Safe Sleeping: This oncology social worker provided MOB with information on depression and anxiety as well as shaken baby, safe sleeping and [facility] general resources. ASSESSMENT: This oncology social worker met with MOB, FOB and infant in room. Introduced self and oncology social worker role. MOB agreeable to speak with this oncology social worker. MOB provided verbal permission for this oncology social worker to speak openly with FOB present. MOB denies concerns on returning to home. resting in bassinet when this oncology social worker entered the room. stirring and FOB picking up and holding infant. FOB support head and body appropriately. MOB reports to have a connection with . MOB with pleasant and engaged affect. Active support and listening provided. PLAN: Infant to discharge to home with MOB, FOB and older brother. No other services requested or indicated. Ciaran CANCHOLA, LAURAS
[2021-09-06 02:30] VITALS: BP 122/58; PULSE 72; RESP 20; TEMP 36; O2SAT 96
--- NOTE | 2021-09-06 07:21 | PCM.PROGNOTE ---
Subjective Subjective patient seen at bedside, doing well. Patient reports good pain control. lochia mild. breast feeding Objective Data Objective Data Vital Signs: Vital Signs Temp Pulse Resp BP Pulse Ox 96.8 F L 72 20 H 122/58 H 96 09/06/21 02:30 09/06/21 02:30 09/06/21 02:30 09/06/21 02:30 09/06/21 02:30 Oxygen Delivery Method Room Air Weight: 129.8 kg Body Mass Index (BMI) 50.6 Intake & Output: Intake and Output for Last 24 Hours 09/04/21 09/05/21 09/06/21 23:59 23:59 23:59 Intake Total 2393.80 / 2393.80 333 / 333 Output Total 400 / 400 600 / 600 Balance 80 / -267 / -267 Lab / Micro Data Result Diagrams: 09/05/21 06:30 09/04/21 08:37 Labs: Laboratory Results - last 24 hr 09/05/21 06:30: Diff Path Review Reviewed Micro: Microbiology 09/04/21 08:00 Nasal Secretion SARS-CoV-2 Antigen (Rapid) - Final Assessment & Plan Assessment/Plan (1) Status post vaginal delivery: (2) Cholestasis during : QUALIFIERS: Trimester: third trimester Qualified Code(s): O26.613 - Liver and biliary tract disorders in , third trimester; K83.1 - Obstruction of bile duct PLAN: PPD#2 , Doing well Routine care pain mgmt ambulation dc home
--- NOTE | 2021-09-06 07:22 | PCM.DC ---
Discharge Instructions Diet Discharge Diet: No restrictions Activity May resume sexual activity in: 6-8 weeks Dressing / Incision Call your doctor if you observe: Fever of 101 or Higher, Inability to urinate, Using more than 1 pad per hour and Uncontrolled pain Follow Up Care Please Follow Up With: Francesca Barron MD When: 1-2 weeks post and again at 6 weeks post . [phone] Test Results: Test results from this visit will be discussed in further detail at your follow-up appointment, if applicable. Discharge Plan Admission Admit Date/Time: 09/04/21 07:05 Attending Provider: Palmer Byrd Primary Care Provider: David James NP Discharge Orders/Prescriptions Prescriptions: New acetaminophen 500 mg Tablet 1,000 mg PO Q6H PRN PRN (Reason: Pain 1-10 Or Fever) Qty: 0 RF: 0 ibuprofen 600 mg Tablet 600 mg PO Q6H PRN PRN (Reason: Pain Score 1-3) Qty: 0 RF: 0 Continued levothyroxine 88 MCG tablet 137 mcg PO DAILY RF: 0 Prenatabs FA 1 TABLET tablet 1 tab PO DAILY RF: 0 sertraline [Zoloft] 100 mg Tablet 100 mg PO DAILY RF: 0 bupropion HCl 150 mg Tablet Extended Release 24 Hr 150 mg PO DAILY RF: 0 Discontinued aspirin 81 mg Capsule 162 mg PO DAILY RF: 0 ursodiol 300 mg Capsule 300 mg PO TID RF: 0 Referrals / Follow Up: David James NP, [facility] [Primary Care Provider] - Disposition Disposition (needs filled in before D/C Order can be placed): Home, Self Care
[2021-09-06 07:23] VITALS: BP 133/72; PULSE 71; RESP 20; TEMP 35.9; O2SAT 100
--- NOTE | 2021-09-06 07:25 | NURSING ---
report given to Ciaran Lino RN who is assuming care of pt at this time
[2021-09-06] MEDS: buPROPion (XL) 150 MG TABLET.XL PO (09:27)
[2021-09-06] MEDS: Sertraline 100 MG Tablet PO (09:27)
[2021-09-06] MEDS: Prenatal Vits Tablet 1 TABLET PO (09:28)
[2021-09-06 12:09] VITALS: BP 122/76; PULSE 76; RESP 18; TEMP 35.7; O2SAT 98
== END 2021-09-06 12:12 | disposition home or self-care (01) | DRG 805 ==
PROVIDERS: Admitting Provider Obstetrics & Gynecology; PCP Nurse Practitioner Family; Referring Provider Obstetrics & Gynecology; Visit Provider Obstetrics & Gynecology
DX: O26.62 Liver and biliary tract disorders in childbirth (principal); Z37.0 Single live birth; K83.1 Obstruction of bile duct; E66.01 Morbid (severe) obesity due to excess calories; E03.9 Hypothyroidism, unspecified; O69.81X0 Labor and delivery complicated by cord around neck, without compression, not applicable or unspecified; O99.344 Other mental disorders complicating childbirth; F32.A Depression, unspecified; Z20.822 Contact with and (suspected) exposure to COVID-19; O99.284 Endocrine, nutritional and metabolic diseases complicating childbirth; Z79.82 Long term (current) use of aspirin; Z79.899 Other long term (current) drug therapy; Z3A.38 38 weeks gestation of pregnancy; O99.214 Obesity complicating childbirth; Z90.49 Acquired absence of other specified parts of digestive tract
CPT/HCPCS: 59025; 59050; 80053; 85025; 86850; 86900; 86901; 87426; 99218; J7120; 90686; A4216; G0378